=== PATIENT | female | born 1995 | race African-American/Black ===

== ENCOUNTER 2016-07-30 20:53 | Emergency (ER) | payer SELFPAY ==
[2016-07-30] MEDS ORDERED: PREN29TA PO (21:15)
[2016-07-30 21:18] VITALS: BP 114/52; PULSE 67; RESP 16; TEMP 98.3; O2SAT 100
[2016-07-30] MEDS ORDERED: ACETAMINOPHEN 500 MG CPLT PO ONE (21:45)
--- NOTE | 2016-07-30 22:42 | PD ---
HPI Chief Complaint: Fall Time Seen by Provider: 21:15 Travel History International Travel<30 days: No Contact w/Intl Traveler<30days: No Traveled to known affect area: No History of Present Illness HPI To 20 year-old woman who presents emergency department after a fall we'll try to skateboard. She is at about 6 or 7 weeks. She was attempting the right on a skateboard when she fell off and hit her head. She had a brief LOC of about 5 seconds or so. She has a small abrasion the back of her head and was complaining of some mild headache. She also little bit of neck pain earlier this is not resolved. She was placed in full spinal mobilization and brought in with EMS. History Past Medical History Medical History: Denies Significant Hx : 1 Para: 0 Social History Alcohol Use: No Tobacco Use: No Allergies-Medications (Allergen,Severity, Reaction): Coded Allergies: No Known Allergies (Unverified , 07/30/16) Reported Meds & Prescriptions Reported Meds & Active Scripts Active Reported Plus Iron 29-1 mg ( Vit-Iron Carbonyl) 1 Tab Tab 1 Tab PO DAILY Review of Systems Except as stated in HPI: all other systems reviewed are Neg Physical Exam Narrative GENERAL: Well-appearing 20 year-old woman, full spinal mobilization. SKIN: Focused skin assessment warm/dry. HEAD: Normocephalic. Small abrasion on the back of the head. Little bit of trickling bleeding. EYES: Pupils equal and round. No scleral icterus. No injection or drainage. ENT: No nasal bleeding or discharge. Mucous membranes pink and moist. NECK: Trachea midline. No midline tenderness. Full painless range of motion. CARDIOVASCULAR: Regular rate and rhythm. No murmur appreciated. RESPIRATORY: No accessory muscle use. Clear to auscultation. Breath sounds equal bilaterally. GASTROINTESTINAL: Abdomen soft, non-tender, nondistended. Hepatic and splenic margins not palpable. MUSCULOSKELETAL: No obvious deformities. No clubbing. No cyanosis. No edema. NEUROLOGICAL: Awake and alert. No obvious cranial nerve deficits. Motor grossly within normal limits. Normal speech. Data Data Last Documented VS Vital Signs Date Time Temp Pulse Resp B/P Pulse Ox O2 Delivery O2 Flow Rate FiO2 07/30/16 21:22 16 100 Room Air 07/30/16 21:18 98.3 67 114/52 Orders Acetaminophen (Tylenol) (07/30/16 21:45) [facility] Medical Decision Making Medical Screen Exam Complete: Yes Emergency Medical Condition: Yes Differential Diagnosis Head injury, hematocrit injury, neck injury, other occult injury Narrative Course Medical decision making This is a 20 year-old woman, first trimester , with a slip and fall with brief LOC. She looks well. [place] head CT rule negative. Low risk for chronic important right brain injury. We'll observe her for over a period time in the ED, the discharge. Diagnosis Primary Impression: Closed head injury Additional Instructions: Take Tylenol as needed for headache or muscle pain. Return to the emergency department worsening headache, vomiting, confusion, or any other new or worsening symptoms. Follow-up with your primary doctor in the next one to 2 weeks. Med/Other Pt SpecificInfo: No Change to Meds Disposition: 01 DISCHARGE HOME Condition: Stable Aron Trejo MD Jul 30, 2016 22:42
== END 2016-07-31 00:29 | disposition home or self-care (01) ==
LOC: NEPC 20:53
DX: O99.89 Other specified diseases and conditions complicating pregnancy, childbirth and the puerperium (principal); S09.8XXA Other specified injuries of head, initial encounter; S00.01XA Abrasion of scalp, initial encounter; M54.2 Cervicalgia; V00.131A Fall from skateboard, initial encounter; Y93.51 Activity, roller skating (inline) and skateboarding; Z3A.01 Less than 8 weeks gestation of pregnancy
CPT/HCPCS: 99283